=== PATIENT | female | born 1945 | race Two or more races ===

== ENCOUNTER 2017-08-07 07:06 | Outpatient (CLI) | payer OTHER | END 2017-08-07 07:11 | disposition home or self-care (01) | LOC: SONOGRAMA 07:06 | DX: E04.1 Nontoxic single thyroid nodule (principal) ==

== ENCOUNTER 2019-03-05 06:35 | Day surgery (SDC) | payer OTHER ==
[~2019-03-05 06:35] MED LIST: CLONIDINE HCL0.2 MG PO; TOPROL XL25 M1 PO; ULTRAM50 MG PO
[2019-03-05] MEDS ORDERED: PERCOCET 5-3251 EACH PO (10:51)
== END 2019-03-05 16:00 | disposition home or self-care (01) ==
LOC: CIR.AMB 06:35
DX: E04.2 Nontoxic multinodular goiter (principal)